=== PATIENT | female | born 1985 | race Hispanic/Latino ===

== ENCOUNTER 2019-02-18 09:36 | Emergency (ER) | payer SELFPAY ==
[2019-02-18 10:04] LABS: Bilirubin Negative (Negative); Blood, Urine Large (Negative); Clarity Cloudy (Clear); Glucose, Urine (Dipstick) Negative (Negative); Leukocyte Negative (Negative); Nitrite Negative (Negative); Protein, Urine (Dipstick) Negative (Neg-Trace); Specific Gravity, Urine 1.015 (1.005-1.030); Urobilinogen 0.2 mg/dL (0.2-1.0)
[2019-02-18 10:07] LABS: Oval Fat Bodies/HPF Rare HPF (None Seen); RBC/HPF GREATER THAN 50-TNTC HPF (0-3)
[2019-02-18 10:08] LABS: Bacteria/HPF 2+ HPF (None Seen)
[2019-02-18 10:40] LABS: BHCG - Serum Negative (NEGATIVE); Pregs Control Background? CLEAR/WHITE (CLR/WHITE); Pregs Control Bar Appear? YES (CONTROL BAR)
[2019-02-18 10:43] LABS: #Basophils 0.1 thou/uL (0.0-0.2); #Eosinphils 0.2 thou/uL (0.0-0.7); #Monocytes 0.4 thou/uL (0.11-0.59); #Neutrophils 5.3 thou/uL (1.40-6.50); %Basophils 1.5 % (0.0-1.0); %Eosinophils 2.1 % (0.0-10.0); %Lymphocytes 24.8 % (21.0-51.0); %Monocytes 5.3 % (0.0-10.0); %Neutrophils 66.3 % (42.0-75.0); Anisocytosis SLIGHT = 6-15 cells (100X) (0-5/hpf); Elliptocytes SLIGHT = 2-5 cells (100X) (0-1/hpf); Hypochromia SLIGHT = 6-15 cells (100X) (0-5/hpf); MDiff Complete? YES; Mean Corpuscular HGB CONC 30.3 g/dL (32.0-36.0); Mean Corpuscular Hemoglobin 20.6 pg (27.0-31.0); Mean Corpuscular Volume 67.9 fL (78.0-98.0); Mean Platelet Volume 8.7 fL (7.4-10.4); Microcytosis MODERATE=15-30 cells (100X) (0-5/hpf); Platelet Count 353 thou/uL (130-400); Platelet Morphology Comment Appears Adequate; RBC Distribution Width 14.8 % (11.5-14.5); Red Blood Cell (RBC) Count 4.86 mill/uL (4.20-5.40); Stomatocytes SLIGHT = 2-5 cells (100X) (0-1/hpf); Target Cells SLIGHT = 2-5 cells (100X) (0-1/hpf)
[2019-02-18 10:48] LABS: ALT (SGPT) 69 U/L (8-55); AST (SGOT) 41 U/L (5-34); Albumin 3.9 g/dL (3.5-5.0); Alkaline Phosphatase 105 U/L (40-150); Anion Gap 15 mmol/L (10-20); BUN (Urea Nitrogen) 5 mg/dL (7.0-18.7); Bilirubin, Total 0.2 mg/dL (0.2-1.2); Calc. Creatinine Clearance 0 mL/min (70-130); Calcium 9.2 mg/dL (7.8-10.44); Carbon Dioxide 21 mmol/L (22-29); Chloride 106 mmol/L (98-107); Estimated GFR-MDRD Greater than 90; Globulin 3.6 g/dL (2.4-3.5); Glucose 120 mg/dL (70-105); Lipase 12 U/L (8-78); Protein, Total 7.5 g/dL (6.0-8.3); Sodium 138 mmol/L (136-145)
--- NOTE | 2019-02-18 12:11 | CT ---
CT ABDOMEN AND PELVIS WITH CONTRAST: Date: 02/18/19 Multiple axial tomograms obtained through the abdomen and pelvis with IV enhancement. INDICATION: Abdominal pain. FINDINGS: Images through the lung bases reveal a small pleural based nodule posterior right lung base measuring 8.0 mm. This will need to be followed up. Liver, spleen, and pancreas are unremarkable. Adrenal glands normal. Kidneys unremarkable. There is a tiny, nonobstructing calculus measuring 2.0 mm in the lower pole col lecting structures of the left kidney. Urinary bladder unremarkable. Bowel loops unremarkable. Appendix appears normal. Images through the pelvis reveal an abnormally enlarged, heterogeneous uterus. There is a large area of heterogeneity from the uterine fundus measuring up to 7-8 cm with numerous areas of low attenuatio n suggesting large or multiple necrotic fibroids. The endometrium appears prominent with fluid/blood in the endometrial cavity. Ovaries unremarkable. There is a small umbilical hernia. Mesenteric fat herniates into a subcutaneous hernia sac measuring 4.0 cm. IMPRESSION: 1. Small pleural based nodule in right lung base. Follow-up elective chest CT is recommended. 2. Small umbilical hernia. 3. Enlarged heterogeneous uterus with evidence of numerous, partially necrotic uterine fibroids. The endometrium appears prominent and there may be blood or fluid in the endometrial cavity. Suggest SANITARIAN AIDE consultation. 4. Tiny nonobstructing calculus in the lower pole collecting structures of left kidney. CODE LN. POS: OFF
[2019-02-18] MEDS ORDERED: Metoclopramide HCl 10 MG/2 ML VIAL ONE (12:38)
[2019-02-18] MEDS ORDERED: diphenhydrAMINE 50 MG/ML VIAL ONE (12:38)
[2019-02-18] MEDS ORDERED: Ketorolac Tromethamine 30 MG/ML VIAL ONE (13:14)
[2019-02-18] MEDS ORDERED: Ondansetron PF 4 MG/2 ML Vial ONE (13:15)
--- NOTE | 2019-02-18 14:01 | ULT ---
PELVIC ULTRASOUND: Date: 02/18/19 HISTORY: Pelvic pain, left-sided. COMPARISON: CT examination performed 02/18/19. FINDINGS: Real-time imaging of the pelvis was obtained both transabdominally, as well as with an endovaginal pr obe. The uterus is enlarged. It measures 6.7 x 7.8 x 15.9 cm. There are multiple uterine fibroids present, the largest of which measures approximately 4.8 cm. Both the right and left ovaries are difficult to visualize, but appear unremarkable. DOPPLER EVALUATION WITH SPECTRAL ANALYSIS: Normal flow is shown to the adnexa. IMPRESSION: Enlarged uterus with multiple fibroids. POS: [facility]
== END 2019-02-18 13:55 | disposition home or self-care (01) ==
LOC: SCSER 09:36
DX: D25.9 Leiomyoma of uterus, unspecified (principal)
CPT/HCPCS: 74177; 76856; 80053; 81003; 81015; 83690; 84703; 85025; 86900; 86901; 96374; 96375; J1200; J1885; J2405; J2765

== ENCOUNTER 2019-06-07 10:38 | Day surgery (SDC) | payer OTHER, SELFPAY ==
[2019-06-01 17:46] VITALS: BMI 35.2
--- NOTE | 2019-06-06 16:06 | HP ---
REASON FOR ADMISSION: Dysmenorrhea, menorrhagia, and fibroids. SCHEDULED PROCEDURE: Total laparoscopic hysterectomy, bilateral salpingectomy. HISTORY OF PRESENT ILLNESS: Ms. Luna is a 33-year-old 2, para 2, who is referred from [facility]. She has a history of increasing dysmenorrhea and menorrhagia and ultrasound reveals large fibroids. 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 No history of dysplasia. History of anemia secondary to menorrhagia. PAST MEDICAL HISTORY: Significant for diabetes mellitus, adult onset. PAST SURGICAL HISTORY: Inguinal hernia, cholecystectomy, and delivery x2. ALLERGIES: NONE. MEDICATIONS: 1. Metformin. 2. Ibuprofen. 3. Vitamin D3. SOCIAL HISTORY: Denies tobacco, alcohol, or IV drug use. FAMILY HISTORY: Noncontributory. REVIEW OF SYSTEMS: Noncontributory. PHYSICAL EXAMINATION: GENERAL: female. VITAL SIGNS: Height 5 feet and 4 inches, weight 205, and BMI 35. Blood pressure 120/82, pulse 75, and respirations 18. HEENT: Within normal limits. LUNGS: Clear to auscultation bilaterally. HEART: Regular rate and rhythm. BREASTS: No masses bilaterally. ABDOMEN: Soft, nontender without rebound or guarding. GENITOURINARY: Vulva without lesions. Vagina without discharge. Cervix, nulliparous. Uterus; anteverted, irregular, 10-week size. Adnexa, no masses appreciated bilaterally. EXTREMITIES: No clubbing, cyanosis, or edema. DIAGNOSTIC STUDIES: Ultrasound performed on 04/12 revealed uterus measuring 12 x 9 x 6 cm with a 350 mL uterine volume. There is a fibroid filling the lining of the cavity of the uterus measuring 4.25 cm in greatest diameter. There is also a fundal fibroid measuring 7.92 cm in greatest diameter. There is no significant free fluid. IMPRESSION: Multiple leiomyoma uteri leading to anemia, menorrhagia, and dysmenorrhea. PLAN: Discussed with the patient the options, we will proceed with total laparoscopic hysterectomy, bilateral salpingectomy, may require a GelPOINT retrieval bag for intracorporeal removal and morcellation. We will administer appropriate antibiotic and DVT prophylaxis. Risks and benefits of procedure have been discussed with the patient. Job ID: [id number]
[2019-06-07] MEDS ORDERED: CeleCOXIB 100 MG CAP ONE (11:07)
[2019-06-07] MEDS ORDERED: Gabapentin 300 MG CAP ONE (11:07)
[2019-06-07] MEDS ORDERED: ceFAZolin Sodium (SDC) 2 GM/100 ML BAG ONE (11:08)
[2019-06-07] MEDS ORDERED: Famotidine/PF 20 mg/2ml Vial ONE (11:08)
[2019-06-07] MEDS ORDERED: Fentanyl 100 MCG/2 ML VIAL ONE ×2 (11:22→15:12)
[2019-06-07] MEDS ORDERED: Bupivacaine HCl 0.5%/Epinephrine 1:200,000/PF 30 ml Vial ONE (11:32)
[2019-06-07] MEDS ORDERED: Midazolam HCl 2 mg/2 ml Vial ONE (11:55)
[2019-06-07] MEDS ORDERED: PROPOFOL 200 MG/20 ML VIAL ONE (12:00)
[2019-06-07] MEDS ORDERED: ePHEDrine 50 MG/ML VIAL ONE (12:00)
[2019-06-07] MEDS ORDERED: Dexamethasone 20 MG/5 ML VIAL ONE (12:00)
[2019-06-07] MEDS ORDERED: Rocuronium Bromide 10 MG/ML (10ML VIAL) ONE (12:00)
[2019-06-07] MEDS ORDERED: Glycopyrrolate 0.2 MG/ML 5 ML SYRINGE ONE (12:00)
[2019-06-07] MEDS ORDERED: Ondansetron PF 4 MG/2 ML Vial ONE (12:00)
[2019-06-07] MEDS ORDERED: Ondansetron PF 4 MG/2 ML Vial IVP PRN (14:27)
[2019-06-07] MEDS ORDERED: Bisacodyl 10 MG SUPP PR PRN (14:27)
[2019-06-07] MEDS ORDERED: Zolpidem Tartrate 5 MG TAB PO PRN (14:27)
[2019-06-07] MEDS ORDERED: diphenhydrAMINE 25 MG CAP PO PRN (14:27)
[2019-06-07] MEDS ORDERED: Promethazine HCl 25 MG/ML VIAL IM PRN (14:27)
[2019-06-07] MEDS ORDERED: Morphine 4 MG/ML VIAL SLOW IVP PRN (14:27)
[2019-06-07] MEDS ORDERED: Dextrose 5% in Water 1,000 ML IV PRN (14:33)
[2019-06-07] MEDS ORDERED: HumaLOG 300 UNITS/3 ML VIAL SC PRN (14:33)
[2019-06-07] MEDS ORDERED: Dextrose 50% Abboject 50 ML SYRINGE SLOW IVP PRN (14:33)
--- NOTE | 2019-06-07 15:33 | OP ---
DATE OF PROCEDURE: 06/07/2019 PREOPERATIVE DIAGNOSES: Fundal fibroid, intracavitary fibroid, menorrhagia. POSTOPERATIVE DIAGNOSES: Fundal fibroid, intracavitary fibroid, menorrhagia, iatrogenic posterior vaginal laceration. PROCEDURES PERFORMED: Total laparoscopic hysterectomy with bilateral salpingectomy and repair of posterior iatrogenic vaginal laceration. POWER STATION OPERATOR: Kamilah Villasenor PA-C ANESTHESIA: General endotracheal. ESTIMATED BLOOD LOSS: 200 mL. COMPLICATIONS: Posterior vaginal wall laceration without evidence of rectal injury. SPECIMENS REMOVED: Uterus, fibroids and tubes. DRAINS: Quintero to gravity. MEDICATIONS: 2 g Ancef preincision. DVT PROPHYLAXIS: SCDs. OPERATIVE FINDINGS: 1. Enlarged uterus with fundal fibroid and intracavitary fibroid noted at removal. 2. Normal-appearing tubes, status post BTL. 3. Normal-appearing ovaries. 4. Ureters well lateral to the surgical field bilaterally. 5. Approximately 5 to 6 cm long posterior vaginal wall laceration from apex of vagina to approximately 2.5 cm from introitus repaired. 6. Hemostasis, clear urine. COUNTS: Correct at the end of the procedure. DISPOSITION: Recovery room in good condition. Vaginal pack in situ with Quintero. DESCRIPTION OF PROCEDURE: After obtaining appropriate informed consent, the patient was taken to the operating room, where general endotracheal anesthesia was achieved without difficulty. The patient was prepped and draped in dorsal lithotomy position in Marcelo stirrups. Sliding speculum was placed in vagina. Cervix was identified and grasped with single-tooth tenaculum. Uterus sounded to 12 cm. JSOH manipulator with a 10 mm obturator and a 3.5 cm vaginal indoor landscape architect was placed without difficulty. Quintero catheter was placed and hooked up to a 60 mL syringe. Residential Plumber changed his attention to abdominal portion of the procedure. A 5 mL of Marcaine was injected just above the umbilicus. A 12 mm skin incision was made and Veress needle was placed inside the abdominal cavity. Insufflation was carried out with carbon dioxide at maximum pressure of 15. Once this was done, a 12 mm Doimnique Ethicon trocar was placed without difficulty. The patient was placed in steep Trendelenburg position and right and left lateral da Kee ports were placed under direct visualization as well as an 11 mm orthotics prosthetics assistant port in the right upper quadrant. Findings as noted in the operative findings were noted. Of note, the uterus was expected to be the elongated with a fundal fibroid with the greatest diameter being the longitudinal diameter. Ultrasound had revealed that it measured 350 mL uterine volume with intracavitary fibroid measuring 4.25 in greatest diameter and a 7.92 greatest diameter fundal fibroid. This was confirmed by direct visualization. Consideration was made for use of GelPOINT and retrieval bag. However, because of the elongated nature of the fibroid and the patient's apparent generous pelvis and vagina despite deliveries, decision was made to go ahead and proceed with total laparoscopic hysterectomy in the more traditional manner with anticipated retrieval intact through the vagina. Small omental adhesions to the anterior abdominal wall were noted between the trocar and the fundus of the uterus, and these were taken down in a sharp manner atraumatic, not traumatizing the viscera. The right fallopian tube was excised. The utero-ovarian ligament was coagulated and transected through the broad and the round, and down to the level of the internal cervical os. Anteriorly, vesicouterine peritoneum was incised sharply and dissected off the lower uterine segment. Attention was turned to the patient's left side, where the identical procedure was carried out, again getting down to the level of the vesicouterine peritoneum and it was incised sharply. The bladder was backfilled and it was identified to be below the level of the vaginal indoor landscape architect on the JOSH manipulator and the tissue was taken down pushing the bladder down off the cervix, upper vagina, and down to the level approximately 1 to 2 cm below the anticipated vaginal cuff. Skeletonization of the uterine vessels carried out first on the patient's right and then on the left, and these were coagulated and transected using bipolar cautery on the da Kee fenestrated bipolar, which were in the chocolate production machine operator's left hand and then using the monopolar scissors on the right. Anteriorly, the vagina was entered sharply identifying the blue JOSH cup and this was extended from 12 to 3 and 12 to 6. Posterior cul-de-sac, the JOSH cup was identified and incision made at 6 o'clock and extended from 6 to 3 and 6 to 9. Final pedicles were at the corners assuring that the vessels were coagulated and transected. The uterosacral ligaments were identified. The ureters had been identified well lateral to the operative field bilaterally as well. Once the specimen was amputated, it was pulled into the vagina. Because of the fundal fibroid, it did become somewhat more difficult. It was pulled in and was finally brought into the vagina with moderate manipulation and using half of a bivalve sliding speculum for retraction. Once it was pulled in the vagina, it was left there for pneumoperitoneum. It was apparent that the vaginal mucosa was lacerated full thickness posteriorly at 6 o'clock. There was no evidence that this injury extended into the level of the rectum or anus. The upper 2 cm of this laceration was closed using a running continuous 2-0 stitch PDS Stratafix and incorporating up to the level of the vaginal cuff and the uterosacral ligaments, plicating these together. These rectovaginal septum spaces that were closed were rendered hemostatic with monopolar cautery as well as the application of Tisseel. Once this was done, inspection of all pedicles along the edges of the vaginal cuff were was carried out and these were noted to be dry. The vaginal cuff was closed using a running continuous 2-0 PDS Stratafix from right to left and then back to right utilizing a double-layer closure. Suction irrigation was carried out. Good hemostasis was noted on all surgical pedicles. Tisseel was placed across all these. At this point in time, the da Kee instruments were removed. The robot was undocked. The abdomen was desufflated of carbon dioxide and trocars x4 were removed. The fascia was reapproximated at the level of the umbilical trocar using 0 Vicryl on a UR6 needle. The skin was reapproximated x4 using 4-0 Monocryl and Dermabond. Good hemostasis was noted. Attention was turned to the vagina and the legs were rotated up. Uterine specimen was noted to still be in the vagina. The uterus was amputated from the fundal fibroid to facilitate removal of the specimen from the vagina without further trauma. Once this was done utilizing the typical C-shaped technique, the fibroid was grasped and excised/morcellated from the vagina. Once this was performed, retractors were placed in the vagina, and the vaginal cuff and posterior vaginal wall laceration were identified. The vaginal cuff was noted to be intact. The closure of the upper 2 cm of the vaginal wall laceration was identified as well. The rest of the vaginal laceration was reapproximated using interrupted [id number] of 2-0 Vicryl. Good hemostasis was noted. A small laceration on the right pelvic sidewall was identified. It was rendered hemostatic with a [id number] of 0 Vicryl as well. A moistened Kerlix sponge was placed in the vagina for packing and the Quintero was left in situ. Urine was noted to be clear at this point in time with several 100 mL produced intraoperatively. The patient was awakened, extubated, and taken to recovery room in good condition. We will leave vaginal packing and Quintero in until tomorrow morning. Anticipate probable discharge on 06/08. We will restart metformin tomorrow morning, and keep the patient on clear liquid diet initially and a light sliding scale. Job ID: [id number]
[2019-06-07] MEDS: Sodium Chloride 0.9% 1,000 ML IV SCH (16:50)
[2019-06-07] MEDS: Acetaminophen 1,000 MG in Premix Bag 1 BAG IVPB SCH (18:12)
[2019-06-07] MEDS: Simethicone Chewable 80 MG TAB PO PRN (20:51)
[2019-06-07] MEDS: HYDROcodone/Acetaminophen 5/325 mg Tablet PO PRN ×2 (21:45→23:04)
[2019-06-07] MEDS ORDERED: Gabapentin 300 MG CAP PO SCH (22:00)
[2019-06-08 04:06] LABS: Hemoglobin 10.6 g/dL (12.0-16.0); Mean Corpuscular HGB CONC 33.4 g/dL (32.0-36.0); Mean Corpuscular Volume 71.7 fL (78.0-98.0); Mean Platelet Volume 9.1 fL (7.4-10.4); Platelet Count 310 thou/uL (130-400); Red Blood Cell (RBC) Count 4.44 mill/uL (4.20-5.40)
[2019-06-08] MEDS: Simethicone Chewable 80 MG TAB PO PRN (04:25)
[2019-06-08] MEDS: HYDROcodone/Acetaminophen 5/325 mg Tablet PO PRN ×2 (04:26→08:59)
[2019-06-08] MEDS: Sodium Chloride 0.9% 1,000 ML IV SCH ×3 (05:50→08:58)
[2019-06-08] MEDS: Acetaminophen 1,000 MG in Premix Bag 1 BAG IVPB SCH ×2 (05:51→06:48)
[2019-06-08] MEDS ORDERED: metFORMIN 500 MG TAB PO SCH (06:00)
--- NOTE | 2019-06-08 08:29 | PRG ---
DATE OF SERVICE: 06/08/2019 TIME SERVICE: 0800 hours. SUBJECTIVE: The patient is postoperative day #1. She reports pain of less than 3 on a 1 to 10 scale. She reports that she has been ambulating. She is developing urgency for voiding, but has not so far. OBJECTIVE: VITAL SIGNS: Temperature 99.0, pulse 59, respirations 17, blood pressure 108/60. The patient has put out 6600 mL postoperatively and an indwelling Quintero, which was discontinued at 0600 hours. Vag pack was discontinued at 0600 hours, was reported to be dry. LUNGS: Clear to auscultation bilaterally. HEART: Regular rhythm. ABDOMEN: Soft and nontender without rebound or guarding. Incisions are intact. Perineum is dry. EXTREMITIES: Without clubbing, cyanosis, or edema. LABORATORY DATA: Postoperative hematocrit is 31.9%. Normal platelet count. CBG in a.m. is 114. IMPRESSION: Postoperative day #0 to 1, status post total laparoscopic hysterectomy, bilateral salpingectomy with iatrogenic posterior vaginal wall laceration repair. PLAN: Ambulation, advance diet. Anticipate the patient resuming normal voiding, anticipate discharge at approximately 1200 hours today. Job ID: [id number]
[2019-06-08 11:55] VITALS: BP 123/67; TEMP 98.6
--- NOTE | 2019-06-08 12:13 | DIS ---
DATE OF ADMISSION: 06/07/2019 DATE OF DISCHARGE: 06/08/2019 TIME OF SERVICE: 11:40. SUMMARY OF HOSPITAL COURSE: The patient underwent TLH, bilateral salpingectomy with iatrogenic vaginal laceration repair at 8:14 p.m. She had unremarkable postoperative period with a hematocrit of 32%. Discharge temperature of 98.9, pulse 69, respirations 20, blood pressure 147/86. The patient voided 800 mL in the a.m. after discontinuing her Quintero. She had no vaginal bleeding. She will be discharged home on [place] and ibuprofen, sent to [facility] in [place], and follow up is scheduled at [facility] [place]. Job ID: [id number]
[2019-06-09] MEDS ORDERED: metFORMIN 500 MG TAB PO SCH (17:00)
== END 2019-06-08 12:54 | disposition home or self-care (01) ==
LOC: SDC 10:38 → 3SE 16:16 → SDC 06-08 12:54
PROVIDERS: ATTEND Obstetrics & Gynecology
PROC: 0UQGXZZ Repair Vagina, External Approach (ICD-10-PCS; principal; 2019-06-07)
PROC: 0UT94ZZ Resection of Uterus, Percutaneous Endoscopic Approach (ICD-10-PCS; principal; 2019-06-07)
PROC: 0UT74ZZ Resection of Bilateral Fallopian Tubes, Percutaneous Endoscopic Approach (ICD-10-PCS; principal; 2019-06-07)
DX: D25.1 Intramural leiomyoma of uterus (principal); N92.0 Excessive and frequent menstruation with regular cycle; N72 Inflammatory disease of cervix uteri; N80.0 Endometriosis of uterus; N83.8 Other noninflammatory disorders of ovary, fallopian tube and broad ligament; S31.41XA Laceration without foreign body of vagina and vulva, initial encounter; D64.9 Anemia, unspecified; E11.9 Type 2 diabetes mellitus without complications; Z79.84 Long term (current) use of oral hypoglycemic drugs; Z79.899 Other long term (current) drug therapy
CPT/HCPCS: 36415; 36416; 85027; 88307; J0131; J0670; J0690; J1100; J2250; J2270; J2405; J2704; J3010; J3490; S0028